=== PATIENT | male | born 1955 | race Caucasian/White ===

== ENCOUNTER → 2025-03-03 | Outpatient (CLI) | payer MEDICARE, SELFPAY ==
--- NOTE | 2025-03-03 07:44 | US_ITS ---
PROCEDURE: ABD LIMITED W/ ELASTOGRAPHY REASON FOR EXAM: FATTY LIVER COMPARISON: None. TECHNIQUE: Procedure Code: [id number] Modality: US Procedure: ABD LIMITED W/ ELASTOGRAPHY Right upper quadrant abdominal ultrasound. [facility] ElastQ Imaging shear wave elastography for non-invasive assessment of liver tissue stiffness. [facility] EPIQ Elite. FINDINGS: LIVER: Size: Mild hepatomegaly. Length: 17.2 cm Echotexture: Diffusely echogenic suggesting fatty infiltration Contour: Normal Lesions: None identified Elastography: EQI Med: 5.2 kPa EQI Med Pedro: 1.29 m/s IQR/Med: 16 %* GALLBLADDER: Surgically absent. COMMON BILE DUCT: Normal measuring 2.4 mm . PANCREAS: Visualized portions are unremarkable. The distal body and tail are obscured by bowel gas. Visualized portions of the right kidney are unremarkable. No right upper quadrant ascites. US/ABD Limited w/ Elastography IMPRESSION: Mild hepatic fibrosis. Borderline hepatomegaly. Fatty infiltration of the liver. Status post cholecystectomy. Reference Values: SRU <1.37 m/s (5.7kPa): No to mild fibrosis 1.37 m/s - 2.2 m/s: Moderate to severe fibrosis >2.2 m/s (15kPa): Significant fibrosis / cirrhosis METAVIR Score F2 or higher: 1.34 m/s (5.7kPa) F3 or higher: 1.55 m/s (7.3kPa) F4: 1.80 m/s (10kPa) * If the IQR/Med is >30%, the variance in the measurements is a large and the a ccuracy of the measurement may be in question. Reading Location: [place] [id number]
--- NOTE | 2025-03-03 07:44 | US_ITS ---
PROCEDURE: THYROID 03/03/2025 REASON FOR EXAM: THYROID NODULE TECHNIQUE: Procedure Code: USTHY Modality: US Procedure: THYROID FINDINGS: Right thyroid lobe size: 4.9 x 1.5 x 1.3 cm Left thyroid lobe size: 5.4 x 1.2 x 1.2 cm Isthmus: 0.4 cm Background parenchymal echotexture is homogeneous. Nodules: 1. Lobe: Right, Location: Posterior, Size: 10 x 10 x 7 mm, Stability: N/A Composition: Mixed cystic and solid (+1) Echogenicity: Hypoechoic (+2) Margin: Lobulated (+2) Shape: Wider than tall (+0) Echogenic Foci: None (+0) TI-RADS: 4 2. Lobe: Right, Location: Mid anterior, Size: 5 x 4 x 3 mm, Stability: N/A Composition: Cystic or mostly cystic (+0) Echogenicity: Anechoic (+0) Margin: Smooth (+0) Shape: Wider than tall (+0) Echogenic Foci: None (+0) TI-RADS: 1 2. Lobe: Right, Location: Medial anterior, Size: 4 x 4 x 3 mm, Stability: N/A Composition: Cystic or mostly cystic (+0) Echogenicity: Anechoic (+0) Margin: Smooth (+0) Shape: Wider than tall (+0) Echogenic Foci: None (+0) TI-RADS: 1 2. Lobe: Left, Location: Anterior, size: 5 x 4 x 3 mm, Stability: N/A Composition: Cystic or mostly cystic (+0) Echogenicity: Anechoic (+0) Margin: Smooth (+0) Shape: Wider than tall (+0) Echogenic Foci: None (+0) TI-RADS: 1 US/Thyroid IMPRESSION: The above findings are most compatible with multinodular goiter. RECOMMENDATION: Based on most suspicious nodule. Nodule size = largest diameter Only evaluate nodule if =>5 mm. Growth > 20% in 2 dimensions = worsening. Follow up to 4 nodules. Recommend biopsy for no more than 2 nodules. Reading Location: [id number]
[2025-03-03 12:37] LABS: Hematocrit 46.9 % (40-54); Hemoglobin 16.1 g/dL (13.0-16.5); Immature Granulocytes Count 0.010 X10^3/uL (0.0-0.0); Mean Corp Hgb Conc 34.3 g/dL (32-36); Mean Corpuscular Volume 90.2 fL (80-94); Mean Platelet Vol. 10.8 fl (6.2-12.0); NRBC Flagged by Analyzer 0 % (0-5); Platelet Count 196 K/mm3 (150-450); RBC Distribution Width CV 13.2 % (11.6-14.6); RBC Distribution Width SD 42.9 fl (35.1-43.9); Red Blood Count 5.20 M/mm3 (4.6-6.2); White Blood Count 4.6 K/mm3 (4.4-11.0)
[2025-03-03 12:51] LABS: AST(SGOT) 25 U/L (<=37); Alanine Aminotransfer ALT/SGPT 20 U/L (<=46); Albumin, Serum 4.0 g/dL (3.4-4.8); Alkaline Phosphatase 84 U/L (40-129); Anion Gap 11 (5-15); BUN 19 mg/dL (4-19); BUN/Creat Ratio 18.1 RATIO (10-20); Calcium,Total 9.3 mg/dL (7.6-11.0); Carbon Dioxide 25.9 mmol/L (21.0-32.0); Chloride 105 mmol/L (98-108); Cholesterol 190 mg/dL (<=200); Globulin 2.8 g/dL (2.2-4.2); Glucose 100 mg/dL (70-99); Low Density Lipoprotein Calc. 107 mg/dL; Potassium 3.5 mmol/L (3.3-5.1); Triglycerides 73 mg/dL; Very Low Density Lipoprotein 15 mg/dL (5-40); cholesterol:hdl ratio screen 2.75
[2025-03-06 15:08] LABS: PSA, Total 2.1 ng/mL (0.0-4.0)
== END | disposition home or self-care (01) ==
PROVIDERS: PCP Internal Medicine; Referring Provider Internal Medicine; Visit Provider Internal Medicine
DX: Z12.5 Encounter for screening for malignant neoplasm of prostate (principal); E78.5 Hyperlipidemia, unspecified; R73.9 Hyperglycemia, unspecified; E04.1 Nontoxic single thyroid nodule; I10 Essential (primary) hypertension; K76.0 Fatty (change of) liver, not elsewhere classified
CPT/HCPCS: 36415; 76536; 76705; 76981; 80053; 80061; 83036; 84153; 84443; 85025